=== PATIENT | male | born 1945 | race Caucasian/White ===

== ENCOUNTER 2017-07-12 11:40 | Day surgery (SDC) | payer MEDICARE, OTHER ==
[~2017-07-12 11:40] MED LIST: Lactated Ringers 1,000 ML IV SCH; Sodium Chloride 0.9% 10 ML Syringe FLUSH PRN; Sodium Chloride 0.9% 2.5 ML Syringe FLUSH PRN
--- NOTE | 2017-07-12 12:15 | PCM.PREANE ---
Preanesthetic Assessment - Anesthesia/Transfusion/Family Hx Anesthesia History: Prior Anesthesia Without Reaction Family History of Anesthesia Reaction: No Transfusion History: No Prior Transfusion(s) Intubation History: Unknown - Review of Systems General: No Symptoms Pulmonary: No Symptoms Cardiovascular: No Symptoms Gastrointestinal: No Symptoms, Other (colon cancer stage I with hemicolectomy ' 16) Neurological: No Symptoms Other: Reports: None - Physical Assessment Height: 1.7 m Weight: 136.531 kg ASA Class: 3 Mental Status: Alert & Oriented x3 Airway Class: Mallampati = 2 Dentition: Reports: Normal Dentition Thyro-Mental Finger Breadths: 3 Mouth Opening Finger Breadths: 3 ROM/Head Extension: Full Lungs: Clear to Auscultation, Normal Respiratory Effort Cardiovascular: Regular Rate, Regular Rhythm - Allergies Allergies/Adverse Reactions: Allergies Allergy/AdvReac Type Severity Reaction Status Date / Time No Known Allergies Allergy Verified 07/30/16 08:17 - Blood Blood Available: No - Anesthesia Plan Pre-Op Medication Ordered: None - Acknowledgements Anesthesia Type Planned: MAC Pt an Appropriate Candidate for the Planned Anesthesia: Yes Alternatives and Risks of Anesthesia Discussed w Pt/Guardian: Yes Pt/Guardian Understands and Agrees with Anesthesia Plan: Yes PreAnesthesia Questionnaire HEENT History: Reports: Other (See Below) Other HEENT History: wears glasses Cardiovascular History: Reports: High Cholesterol, Hypertension Respiratory History: Reports: None Gastrointestinal History: Reports: Other (See Below) Other Gastrointestinal History: occasional heartburn, hx colon cancer Genitourinary History: Reports: None Musculoskeletal History: Reports: Gout Neurological History: Reports: None Psychiatric History: Reports: None Endocrine/Metabolic History: Reports: Obesity/BMI 30+ (BMI 47.1) Hematologic History: Reports: None Immunologic History: Reports: None Oncologic (Cancer) History: Reports: Colon Dermatologic History: Reports: None - Past Surgical History Head Surgeries/Procedures: Reports: None HEENT Surgical History: Reports: Cataract Surgery Cardiovascular Surgical History: Reports: None GI Surgical History: Reports: Colon, Colonoscopy, Other (See Below) Other GI Surgeries/Procedures: colon resection 07/13/2016 Endocrine Surgical History: Reports: None Musculoskeletal Surgical History: Reports: None Oncologic Surgical History: Reports: None - SUBSTANCE USE Smoking Status *Q: Never Smoker Second Hand Smoke Exposure: No Recreational Drug Use History: No - HOME MEDS Home Medications: Home Meds Atenolol 100 mg PO DAILY 06/29/16 [History] Doxazosin Mesylate [Cardura] 8 mg PO DAILY 06/29/16 [History] Niacin [Niacin ER] 750 mg PO DAILY 06/29/16 [History] [place]-3/DHA/Epa/Fish Oil [[place]-3 Fish Oil 1,000 MG Sfgl] 1 tab PO BID 06/29/16 [History] Rosuvastatin [Crestor] 20 mg PO DAILY 06/29/16 [History] Losartan/Hydrochlorothiazide [Losartan-HCTZ 100-25 MG] 1 tab PO DAILY 07/07/17 [ History] - CURRENT (IN HOUSE) MEDS Current Meds: Current Medications Lactated Ringer's (Ringers, Lactated) 1,000 mls @ 125 mls/hr IV ASDIRECTED MERVIN Sodium Chloride (Saline Flush) 10 ml FLUSH ASDIRECTED PRN PRN Reason: Keep Vein Open Sodium Chloride (Saline Flush) 2.5 ml FLUSH ASDIRECTED PRN PRN Reason: Keep Vein Open
[2017-07-12] MEDS ORDERED: Propofol 200 MG/20 ML SDV ONE ×2 (12:48→12:54)
[2017-07-12] MEDS ORDERED: Lidocaine 2% 5 ML SDV ONE (12:54)
--- NOTE | 2017-07-12 13:37 | PCM.OPNOTE ---
- General Post-Op/Procedure Note Date of Surgery/Procedure: 07/12/17 Operative Procedure(s): Colonoscopy Findings: Diverticulosis. Staple line appears well healed. Biopsy taken of staple line. Pre Op Diagnosis: History of colon cancer Post-Op Diagnosis: Normal colonoscopy Anesthesia Technique: MAC Primary Surgeon: Diana Russo Condition: Good
[2017-07-12 14:44] VITALS: BP 134/66
--- NOTE | 2017-07-12 19:53 | OR ---
SURGEON: DIANA RUSSO MD DATE OF PROCEDURE: 07/12/2017 PREOPERATIVE DIAGNOSIS: History of colon cancer. POSTOPERATIVE DIAGNOSIS: Diverticulosis. PROCEDURE PERFORMED: Colonoscopy. ENDOSCOPIST: Dr. Diana Russo. INSTRUMENT USED: Olympus colonoscope. EXTENT OF EXAM: To the cecum. ANESTHESIA: MAC. PREPARATION: Good. LIMITATIONS: None. INDICATION FOR EXAMINATION: The patient is a 72-year-old male, who was diagnosed with colon cancer last year. He underwent a hemicolectomy. He is due for his one year followup colonoscopy. The patient and I discussed the procedure as well as expected perioperative course. We discussed the risks of the procedure including bleeding, infection, or perforation. The patient verbalized understanding and wishes to proceed. PROCEDURE IN DETAIL: The patient was brought to the endoscopy suite and placed in a left lateral decubitus position. A time-out was completed verifying the patient's name, age, date of , allergies, and procedure to be performed. Monitored anesthesia care was induced and continuous oxygen was provided via nasal cannula throughout the procedure. After adequate sedation was achieved, a digital rectal exam was performed. This exam was within normal limits. A well lubricated colonoscope was inserted into the rectum and advanced under direct visualization to the level of cecum. Cecum was identified by both visual and anatomic landmarks. A photograph was taken of the cecal cap, however, I was unable to retroflex the scope within the cecum due to looping more proximally. The scope was then fully withdrawn while examining the color, texture, and anatomy of the mucosa from the cecum to the anal canal. The patient was found to have diverticulosis within the distal aspect of his colon. The staple line appeared to be intact. A biopsy was taken of the staple line. The scope was then brought into the rectum and retroflexed to allow visualization of the anal canal opening. This appeared normal and a photograph was taken. The scope was then straightened out and removed from the patient. The cecum to anus time was 7 minutes. The patient was transferred to the PACU in stable condition. ENDOSCOPIC DIAGNOSES: Normal colonoscopy, diverticulosis. RECOMMENDATION: Follow up in clinic in 2 weeks to discuss the pathology results. URIEL SHAIKH /[id number] TARSHA
== END 2017-07-12 14:05 | disposition home or self-care (01) ==
LOC: MW.SDS 11:40
PROVIDERS: ATTEND Surgery
DX: Z08 Encounter for follow-up examination after completed treatment for malignant neoplasm (principal); K57.30 Diverticulosis of large intestine without perforation or abscess without bleeding; I10 Essential (primary) hypertension; E78.00 Pure hypercholesterolemia, unspecified; E66.9 Obesity, unspecified; Z68.42 Body mass index [BMI] 45.0-49.9, adult; Z85.038 Personal history of other malignant neoplasm of large intestine; Z90.49 Acquired absence of other specified parts of digestive tract; Z79.899 Other long term (current) drug therapy
CPT/HCPCS: G0105; J7120; 88305; J2704

== ENCOUNTER 2018-11-10 11:55 | Emergency (ER) | payer MEDICARE, OTHER ==
--- NOTE | 2018-11-10 12:44 | EDM.PDOC ---
ED HPI GENERAL MEDICAL PROBLEM - General Chief Complaint: Wound Recheck Stated Complaint: DRSG CHANGE TO BACK Time Seen by Provider: 11/10/18 11:56 Source of Information: Reports: Patient History Limitations: Reports: No Limitations - History of Present Illness INITIAL COMMENTS - FREE TEXT/NARRATIVE: HISTORY AND PHYSICAL: History of present illness: Patient is a 73-year-old male who presents to the emergency room requesting a wound recheck. He was seen at [facility] on Monday for a abscess to his right scapula. He had this area I&D and packed with iodoform. He was encouraged to come to the emergency room for reevaluation and wound repacking. He states the area feels "much better" and has been taking his antibiotics as directed. Patient denies any fever, chills, headache, change in vision, syncope or near syncope. Denies any chest pain, shortness of breath or cough. Denies any abdominal pain, nausea, vomiting, diarrhea, constipation or dysuria. Has not noted any blood in urine or stool. Patient has been eating and drinking appropriately. Review of systems: As per history of present illness and below otherwise all systems reviewed and negative. Past medical history: As per history of present illness and as reviewed below otherwise noncontributory. Surgical history: As per history of present illness and as reviewed below otherwise noncontributory. Social history: See social history for further information Family history: As per history of present illness and as reviewed below otherwise noncontributory. Physical exam: General: Well-developed and well-nourished 73-year-old male. Alert and oriented. Nontoxic appearing and in no acute distress. HEENT: Atraumatic, normocephalic, pupils equal and reactive bilaterally, negative for conjunctival pallor or scleral icterus, mucous membranes moist, TMs normal bilaterally, throat clear, neck supple, nontender, trachea midline. No drooling or trismus noted. No meningeal signs. No hot potato voice noted. Lungs: Clear to auscultation, breath sounds equal bilaterally, chest nontender. Heart: S1S2, regular rate and rhythm without overt murmur Abdomen: Soft, nondistended, nontender. Negative for masses or hepatosplenomegaly. Negative for costovertebral tenderness. Pelvis: Stable nontender. Genitourinary: Deferred. Rectal: Deferred. Skin: Patient does have a 2 cm incision site to the right mid scapula where an I &D was performed. The surrounding skin appears intact with no evidence of erythema. Otherwise skin is intact, warm, dry. No lesions or rashes noted. Extremities: Atraumatic, negative for cords or calf pain. Neurovascular unremarkable. Neuro: Awake, alert, oriented. Cranial nerves II through XII unremarkable. Cerebellum unremarkable. Motor and sensory unremarkable throughout. Exam nonfocal. Notes: Packing was removed and iodoform was repacked within the I&D site. Patient tolerated well. ABD nonstick dressing and Tegaderm placed over top of site. Patient's blood pressure is high 90s over 60s. He is asymptomatic. He states he feels well and does not want this addressed at this time. He will follow-up with Dr. Maxwell on Monday for reevaluation of the site. Supportive care measures were reviewed and discussed. Voices understanding and is agreeable to plan of care. Denies any further questions or concerns at this time. Diagnostics: None Therapeutics: Wound Care, Packing Prescription: None Impression: Encounter for Wound Re-Check Plan: 1. Continue taking your oral antibiotics as directed. Tylenol and/or ibuprofen as needed for pain management 2. Please return to the ED tomorrow for wound re-evaluation as we discussed 3. Return to the ED as needed and as discussed. Definitive disposition and diagnosis as appropriate pending reevaluation and review of above. - Related Data Allergies Allergy/AdvReac Type Severity Reaction Status Date / Time No Known Allergies Allergy Verified 07/30/16 08:17 Home Meds: Home Meds Atenolol 100 mg PO DAILY 06/29/16 [History] Doxazosin Mesylate [Cardura] 8 mg PO DAILY 06/29/16 [History] Niacin [Niacin ER] 750 mg PO DAILY 06/29/16 [History] Rosuvastatin [Crestor] 20 mg PO DAILY 06/29/16 [History] Past Medical History HEENT History: Reports: Other (See Below) Other HEENT History: wears glasses Cardiovascular History: Reports: High Cholesterol, Hypertension Respiratory History: Reports: None Gastrointestinal History: Reports: Other (See Below) Other Gastrointestinal History: occasional heartburn, hx colon cancer Genitourinary History: Reports: None Musculoskeletal History: Reports: Gout Neurological History: Reports: None Psychiatric History: Reports: None Endocrine/Metabolic History: Reports: Obesity/BMI 30+ Hematologic History: Reports: None Immunologic History: Reports: None Oncologic (Cancer) History: Reports: Colon Dermatologic History: Reports: None - Infectious Disease History Infectious Disease History: Reports: Chicken Pox, Measles - Past Surgical History Head Surgeries/Procedures: Reports: None HEENT Surgical History: Reports: Cataract Surgery Cardiovascular Surgical History: Reports: None GI Surgical History: Reports: Colon, Colonoscopy, Other (See Below) Other GI Surgeries/Procedures: colon resection 07/13/2016 Endocrine Surgical History: Reports: None Musculoskeletal Surgical History: Reports: None Oncologic Surgical History: Reports: None Social & Family History - Family History Family Medical History: Noncontributory - Tobacco Use Smoking Status *Q: Never Smoker - Caffeine Use Caffeine Use: Reports: None Caffeine Use Comment: 1 cup/day - Recreational Drug Use Recreational Drug Use: No ED ROS GENERAL - Review of Systems Review Of Systems: ROS reveals no pertinent complaints other than HPI. ED EXAM, SKIN/RASH Exam: See Below (See dictation) Course - Vital Signs Last Recorded V/S: Last Vital Signs Temp 97.4 F 11/10/18 12:16 Pulse 73 11/10/18 12:16 Resp 16 11/10/18 12:16 BP 92/42 L 11/10/18 12:16 Pulse Ox 96 11/10/18 12:16 Departure - Departure Time of Disposition: 12:42 Disposition: Home, Self-Care 01 Clinical Impression: Encounter for wound re-check - Discharge Information Referrals: Sekou Landry MD [Primary Care Provider] - Additional Instructions: The following information is given to patients seen in the emergency department who are being discharged to home. This information is to outline your options for follow-up care. We provide all patients seen in our emergency department with a follow-up referral. The need for follow-up, as well as the timing and circumstances, are variable depending upon the specifics of your emergency department visit. If you don't have a primary care physician on staff, we will provide you with a referral. We always advise you to contact your personal physician following an emergency department visit to inform them of the circumstance of the visit and for follow-up with them and/or the need for any referrals to a consulting specialist. The emergency department will also refer you to a specialist when appropriate. This referral assures that you have the opportunity for follow-up care with a specialist. All of these measure are taken in an effort to provide you with optimal care, which includes your follow-up. Under all circumstances we always encourage you to contact your private physician who remains a resource for coordinating your care. When calling for follow-up care, please make the office aware that this follow-up is from your recent emergency room visit. If for any reason you are refused follow-up, please contact the [facility] Emergency Department at and asked to speak to the emergency department charge nurse. [facility] Primary Care [address] [place] [address] [id number] [facility] [address] [place] [id number] 1. Continue taking your oral antibiotics as directed. Tylenol and/or ibuprofen as needed for pain management 2. Please return to the ED tomorrow for wound re-evaluation as we discussed 3. Return to the ED as needed and as discussed.
[2018-11-10 12:56] VITALS: BP 89/42
== END 2018-11-10 12:57 | disposition home or self-care (01) ==
LOC: MW.ED 11:55
DX: Z48.817 Encounter for surgical aftercare following surgery on the skin and subcutaneous tissue (principal); I10 Essential (primary) hypertension; E78.00 Pure hypercholesterolemia, unspecified; Z79.899 Other long term (current) drug therapy
CPT/HCPCS: 99282

== ENCOUNTER 2018-11-11 11:07 | Emergency (ER) | payer MEDICARE, OTHER ==
[2018-11-11 11:18] VITALS: BP 117/54
--- NOTE | 2018-11-11 11:53 | EDM.PDOC ---
ED HPI GENERAL MEDICAL PROBLEM - General Chief Complaint: Wound Recheck Stated Complaint: WOUND RECHECK Time Seen by Provider: 11/11/18 11:22 Source of Information: Reports: Patient - History of Present Illness INITIAL COMMENTS - FREE TEXT/NARRATIVE: HISTORY AND PHYSICAL: History of present illness: []Patient with Dr. Maxwell's is in for wound recheck and packing He has a lesion on his back just below the right scapula that was drained, packing was in place he is been here yesterday for repacking as well as today, wound lesion is approximately 2 inches in length quarter inch wide there is a small amount of redness around the border no tenderness associated had been painful the first couple of days currently nontender scant exudate on the packing Wound was re-flushed and packing was changed She will continue antibiotics and follow up with Dr. Maxwell at [place] tomorrow Review of systems: As per history of present illness and below otherwise all systems reviewed and negative. Past medical history: As per history of present illness and as reviewed below otherwise noncontributory. Surgical history: As per history of present illness and as reviewed below otherwise noncontributory. Social history: No reported history of drug or alcohol abuse. Family history: As per history of present illness and as reviewed below otherwise noncontributory. Physical exam: HEENT: Atraumatic, normocephalic, pupils reactive, negative for conjunctival pallor or scleral icterus, mucous membranes moist, throat clear, neck supple, nontender, trachea midline. Lungs: Clear to auscultation, breath sounds equal bilaterally, chest nontender. Heart: S1S2, regular, negative for clicks, rubs, or JVD. Abdomen: Soft, nondistended, nontender. Negative for masses or hepatosplenomegaly. Negative for costovertebral tenderness. Pelvis: Stable nontender. Genitourinary: Deferred. Rectal: Deferred. Extremities: Atraumatic, negative for cords or calf pain. Neurovascular unremarkable. Neuro: Awake, alert, oriented. Cranial nerves II through XII unremarkable. Cerebellum unremarkable. Motor and sensory unremarkable throughout. Exam nonfocal. Diagnostics: [Clinical ] Therapeutics: [Into new antibiotics follow-up with Dr. Maxwell ] Impression: [Encounter for wound care ] Definitive disposition and diagnosis as appropriate pending reevaluation and review of above. - Related Data Allergies Allergy/AdvReac Type Severity Reaction Status Date / Time No Known Allergies Allergy Verified 11/11/18 11:18 Home Meds: Home Meds Atenolol 100 mg PO DAILY 06/29/16 [History] Doxazosin Mesylate [Cardura] 8 mg PO DAILY 06/29/16 [History] Niacin [Niacin ER] 750 mg PO DAILY 06/29/16 [History] Rosuvastatin [Crestor] 20 mg PO DAILY 06/29/16 [History] Past Medical History HEENT History: Reports: Other (See Below) Other HEENT History: wears glasses Cardiovascular History: Reports: High Cholesterol, Hypertension Respiratory History: Reports: None Gastrointestinal History: Reports: Other (See Below) Other Gastrointestinal History: occasional heartburn, hx colon cancer Genitourinary History: Reports: None Musculoskeletal History: Reports: Gout Neurological History: Reports: None Psychiatric History: Reports: None Endocrine/Metabolic History: Reports: Obesity/BMI 30+ Hematologic History: Reports: None Immunologic History: Reports: None Oncologic (Cancer) History: Reports: Colon Dermatologic History: Reports: None - Infectious Disease History Infectious Disease History: Reports: Chicken Pox, Measles - Past Surgical History Head Surgeries/Procedures: Reports: None HEENT Surgical History: Reports: Cataract Surgery Cardiovascular Surgical History: Reports: None GI Surgical History: Reports: Colon, Colonoscopy, Other (See Below) Other GI Surgeries/Procedures: colon resection 07/13/2016 Endocrine Surgical History: Reports: None Musculoskeletal Surgical History: Reports: None Oncologic Surgical History: Reports: None Social & Family History - Family History Family Medical History: Noncontributory - Tobacco Use Smoking Status *Q: Never Smoker - Caffeine Use Caffeine Use: Reports: Coffee Caffeine Use Comment: 1 cup/day - Recreational Drug Use Recreational Drug Use: No ED ROS GENERAL - Review of Systems Review Of Systems: See Below ED EXAM, GENERAL - Physical Exam Exam: See Below Course - Vital Signs Last Recorded V/S: Last Vital Signs Temp 96.8 F 11/11/18 11:16 Pulse 85 11/11/18 11:16 Resp 18 11/11/18 11:16 BP 117/54 L 11/11/18 11:16 Pulse Ox 95 11/11/18 11:16 Departure - Departure Time of Disposition: 11:52 Disposition: Home, Self-Care 01 Condition: Good Clinical Impression: Encounter for wound care - Discharge Information Referrals: Vadim Maxwell MD [Primary Care Provider] - Additional Instructions: The following information is given to patients seen in the emergency department who are being discharged to home. This information is to outline your options for follow-up care. We provide all patients seen in our emergency department with a follow-up referral. The need for follow-up, as well as the timing and circumstances, are variable depending upon the specifics of your emergency department visit. If you don't have a primary care physician on staff, we will provide you with a referral. We always advise you to contact your personal physician following an emergency department visit to inform them of the circumstance of the visit and for follow-up with them and/or the need for any referrals to a consulting specialist. The emergency department will also refer you to a specialist when appropriate. This referral assures that you have the opportunity for follow-up care with a specialist. All of these measure are taken in an effort to provide you with optimal care, which includes your follow-up. Under all circumstances we always encourage you to contact your private physician who remains a resource for coordinating your care. When calling for follow-up care, please make the office aware that this follow-up is from your recent emergency room visit. If for any reason you are refused follow-up, please contact the [facility] emergency department at and asked to speak to the emergency department charge nurse.
== END 2018-11-11 12:00 | disposition home or self-care (01) ==
LOC: MW.ED 11:07
DX: Z48.817 Encounter for surgical aftercare following surgery on the skin and subcutaneous tissue (principal); E78.00 Pure hypercholesterolemia, unspecified; I10 Essential (primary) hypertension; Z79.899 Other long term (current) drug therapy
CPT/HCPCS: 99282

== ENCOUNTER 2019-09-17 08:03 | Day surgery (SDC) | payer MEDICARE, OTHER ==
[~2019-09-17 08:03] MED LIST changes: +Lidocaine 2% 100 MG/5 ML Syringe ONE; +Midazolam 1 MG/ML 2 ML SDV ONE; +Propofol 200 MG/20 ML SDV ONE; +Sodium Chloride 0.9% 10 ML SDV IV PRN; +fentaNYL 100 MCG/2 ML SDV ONE
[2019-09-17] MEDS ORDERED: Midazolam 1 MG/ML 2 ML SDV ONE (09:30)
[2019-09-17] MEDS ORDERED: fentaNYL 100 MCG/2 ML SDV ONE (09:30)
[2019-09-17] MEDS ORDERED: Propofol 200 MG/20 ML SDV ONE (09:30)
--- NOTE | 2019-09-17 09:41 | PCM.PREANE ---
Preanesthetic Assessment - Anesthesia/Transfusion/Family Hx Anesthesia History: Prior Anesthesia Without Reaction Family History of Anesthesia Reaction: No Transfusion History: No Prior Transfusion(s) Intubation History: Unknown - Review of Systems General: No Symptoms Pulmonary: No Symptoms Cardiovascular: No Symptoms Gastrointestinal: No Symptoms Neurological: No Symptoms Other: Reports: None - Physical Assessment NPO Status Date: 09/16/19 NPO Status Time: 23:00 Vital Signs: Last Vital Signs Temp 98.4 F 09/17/19 08:30 Pulse 65 09/17/19 08:30 Resp 16 09/17/19 08:30 BP 132/61 09/17/19 08:30 Pulse Ox 99 09/17/19 08:30 Height: 5 ft 7 in Weight: 107.955 kg ASA Class: 2 ROM/Head Extension: Full Lungs: Clear to Auscultation, Normal Respiratory Effort Cardiovascular: Regular Rate, Regular Rhythm - Allergies Allergies/Adverse Reactions: Allergies Allergy/AdvReac Type Severity Reaction Status Date / Time No Known Allergies Allergy Verified 09/11/19 11:14 - Blood Blood Available: No - Anesthesia Plan Pre-Op Medication Ordered: None - Acknowledgements Anesthesia Type Planned: General Anesthesia Pt an Appropriate Candidate for the Planned Anesthesia: Yes Alternatives and Risks of Anesthesia Discussed w Pt/Guardian: Yes Pt/Guardian Understands and Agrees with Anesthesia Plan: Yes Additional Comments: PMH: htn, hld PLAN: tiva PreAnesthesia Questionnaire HEENT History: Reports: Cataract, Other (See Below) Other HEENT History: wears glasses Cardiovascular History: Reports: High Cholesterol, Hypertension Respiratory History: Reports: None Gastrointestinal History: Reports: Diverticulosis, Other (See Below) Other Gastrointestinal History: hx of Colon cancer and liver metastasis Genitourinary History: Reports: None Musculoskeletal History: Reports: Gout Neurological History: Reports: None Psychiatric History: Reports: None Endocrine/Metabolic History: Reports: Obesity/BMI 30+ Hematologic History: Reports: None Immunologic History: Reports: None Oncologic (Cancer) History: Reports: Colon, Liver Dermatologic History: Reports: None - Infectious Disease History Infectious Disease History: Reports: Chicken Pox, Measles - Past Surgical History Head Surgeries/Procedures: Reports: None HEENT Surgical History: Reports: Cataract Surgery GI Surgical History: Reports: Colon, Colonoscopy, Other (See Below) Other GI Surgeries/Procedures: Colon resection and Liver Resection Oncologic Surgical History: Reports: Other (See Below) Other Oncologic Surgeries/Procedures: Colon and Liver resections - SUBSTANCE USE Smoking Status *Q: Never Smoker Recreational Drug Use History: No - HOME MEDS Home Medications: Home Meds Doxazosin Mesylate [Cardura] 8 mg PO QAM 06/29/16 [History] Niacin [Niacin ER] 750 mg PO BEDTIME 06/29/16 [History] Rosuvastatin [Crestor] 20 mg PO BEDTIME 06/29/16 [History] atenoloL [Atenolol] 100 mg PO QAM 06/29/16 [History] amLODIPine Besylate [Amlodipine Besylate] 5 mg PO QPM 09/11/19 [History] - CURRENT (IN HOUSE) MEDS Current Meds: Current Medications Lactated Ringer's (Ringers, Lactated) 1,000 mls @ 125 mls/hr IV ASDIRECTED MERVIN Last Admin: 09/17/19 09:14 Dose: 125 mls/hr Sodium Chloride (Saline Flush) 10 ml FLUSH ASDIRECTED PRN PRN Reason: Keep Vein Open Sodium Chloride (Saline Flush) 2.5 ml FLUSH ASDIRECTED PRN PRN Reason: Keep Vein Open Sodium Chloride (Saline Flush) 10 ml FLUSH ASDIRECTED PRN PRN Reason: Keep Vein Open Sodium Chloride (Saline Flush) 2.5 ml FLUSH ASDIRECTED PRN PRN Reason: Keep Vein Open Sodium Chloride (Normal Saline) 10 ml IV ASDIRECTED PRN PRN Reason: IV Use Discontinued Medications Fentanyl (Sublimaze) Confirm Administered Dose 100 mcg .ROUTE .STK-MED ONE Stop: 09/17/19 07:08 Fentanyl (Sublimaze) Confirm Administered Dose 100 mcg .ROUTE .STK-MED ONE Stop: 09/17/19 09:31 Lidocaine HCl (Xylocaine 2%) Confirm Administered Dose 100 mg .ROUTE .STK-MED ONE Stop: 09/17/19 07:08 Midazolam HCl (Versed 1 Mg/Ml) Confirm Administered Dose 2 mg .ROUTE .STK-MED ONE Stop: 09/17/19 07:09 Midazolam HCl (Versed 1 Mg/Ml) Confirm Administered Dose 2 mg .ROUTE .STK-MED ONE Stop: 09/17/19 09:31 Propofol (Diprivan 20 Ml) Confirm Administered Dose 400 mg .ROUTE .STK-MED ONE Stop: 09/17/19 07:08 Propofol (Diprivan 20 Ml) Confirm Administered Dose 400 mg .ROUTE .STK-MED ONE Stop: 09/17/19 09:31
--- NOTE | 2019-09-17 11:37 | PCM.POSTAN ---
POST ANESTHESIA ASSESSMENT - MENTAL STATUS Mental Status: Alert, Oriented - VITAL SIGNS Vital Signs: Last Vital Signs Temp 98.4 F 09/17/19 08:30 Pulse 65 09/17/19 08:30 Resp 16 09/17/19 08:30 BP 132/61 09/17/19 08:30 Pulse Ox 99 09/17/19 08:30 - RESPIRATORY Respiratory Status: Respiratory Rate WNL, Airway Patent, O2 Saturation Stable - CARDIOVASCULAR CV Status: Pulse Rate WNL, Blood Pressure Stable - GASTROINTESTINAL GI Status: No Symptoms - POST OP HYDRATION Hydration Status: Adequate & Stable
--- NOTE | 2019-09-17 11:37 | PCM48HPAN ---
Post Anesthesia Note - EVALUATION WITHIN 48HRS OF ANESTHETIC Vital Signs in Normal Range: Yes Patient Participated in Evaluation: Yes Respiratory Function Stable: Yes Airway Patent: Yes Cardiovascular Function Stable: Yes Hydration Status Stable: Yes Pain Control Satisfactory: Yes Nausea and Vomiting Control Satisfactory: Yes Mental Status Recovered: Yes Vital Signs: Last Vital Signs Temp 98.4 F 09/17/19 08:30 Pulse 65 09/17/19 08:30 Resp 16 09/17/19 08:30 BP 132/61 09/17/19 08:30 Pulse Ox 99 09/17/19 08:30
--- NOTE | 2019-09-17 11:39 | PCM.OPNOTE ---
- General Post-Op/Procedure Note Date of Surgery/Procedure: 09/17/19 Operative Procedure(s): Diagnostic colonoscopy with polypectomy Findings: 3 transverse colon polyps, diverticulosis Pre Op Diagnosis: History of colon cancer Post-Op Diagnosis: Trasnverse colon polyp Anesthesia Technique: MAC Primary Surgeon: Diana Russo Condition: Good
[2019-09-17 12:30] VITALS: BP 102/52; PULSE 59
--- NOTE | 2019-09-18 13:03 | OR ---
SURGEON: DIANA RUSSO MD DATE OF PROCEDURE: 09/17/2019 PREOPERATIVE DIAGNOSIS: History of colon cancer. POSTOPERATIVE DIAGNOSES: 1. Transverse colon polyps x3. 2. Descending colon polyp x1. 3. Diverticulosis. PROCEDURE PERFORMED: Diagnostic colonoscopy with polypectomy. PRIMARY SURGEON: Diana Russo MD. ANESTHESIA: MAC. INSTRUMENT USED: Olympus colonoscope. EXTENT OF EXAM: To the cecum. PREPARATION: Good. LIMITATIONS: None. INDICATIONS FOR EXAMINATION: The patient is a 74-year-old male with a past medical history significant for colon cancer. He is here for a repeat colonoscopy as a part of his routine followup. I explained the procedure; expected perioperative course; and risks including bleeding, infection, or damage to surrounding structures including perforation. He verbalized understanding and wishes to proceed. PROCEDURE IN DETAIL: The patient was brought into the endoscopy suite and placed in the left lateral decubitus position. A time-out was completed verifying the patient's name, age, date of , allergies, and procedure to be performed. Monitored anesthesia care was induced and continuous oxygen was provided via nasal cannula throughout the procedure. After adequate sedation was achieved, a digital rectal exam was performed. This exam was within normal limits. A well-lubricated colonoscope was inserted in the rectum and advanced under direct visualization to the level of the cecum. The cecum was identified by both visual and anatomic landmarks. A photograph was taken of the cecal cap. The scope was then fully withdrawn while examining the color, texture, anatomy, and integrity mucosa from the cecum to the anal canal. The patient was found to have three transverse colon polyps. One was in the proximal transverse colon and the other two were in the distal transverse colon. They were all removed in piecemeal fashion using cold biopsy forceps. In the proximal descending colon, the patient had another sessile polyp noted as well. This was removed using cold biopsy forceps. In the distal half of the patient's colon, he was noted to have scattered diverticulosis. The staple line appeared intact with no evidence of recurrence. The scope was brought into the rectum and retroflexed to allow visualization of the anal canal opening. This appeared normal and a photograph was taken. Scope was straightened out and fully withdrawn. The cecum to anus time was 14 minutes. The patient tolerated the procedure well and was transferred to the PACU in stable condition. ENDOSCOPIC DIAGNOSES: 1. Transverse colon polyps x3. 2. Descending colon polyp x1. 3. Diverticulosis. RECOMMENDATIONS: Follow up in clinic in 2 weeks. URIEL / NEEL /[id number]
== END 2019-09-17 12:20 | disposition home or self-care (01) ==
LOC: MW.SDS 08:03
PROVIDERS: ATTEND Surgery
DX: Z12.11 Encounter for screening for malignant neoplasm of colon (principal); D12.3 Benign neoplasm of transverse colon; D12.4 Benign neoplasm of descending colon; K63.5 Polyp of colon; K57.30 Diverticulosis of large intestine without perforation or abscess without bleeding; I10 Essential (primary) hypertension; E78.00 Pure hypercholesterolemia, unspecified; M10.9 Gout, unspecified; E66.9 Obesity, unspecified; Z68.37 Body mass index [BMI] 37.0-37.9, adult; Z85.038 Personal history of other malignant neoplasm of large intestine; Z85.05 Personal history of malignant neoplasm of liver; Z79.899 Other long term (current) drug therapy
CPT/HCPCS: 45380; J2001; J2704; J3010; J7120; 00811; 88305; J2250